=== PATIENT | male | born 1985 | race Caucasian/White ===

== ENCOUNTER 2019-09-23 15:44 | Emergency (ER) | payer OTHER, SELFPAY ==
[2019-09-23 16:21] VITALS: BP 153/102; PULSE 120; RESP 16; TEMP 36.8; O2SAT 100
--- NOTE | 2019-09-23 16:23 | ED.GENADULT ---
HPI - General Adult General Chief complaint: Upper Respiratory Infection Stated complaint: sore throat/garcia/body aches Time Seen by Provider: 09/23/19 16:29 Source: patient Mode of arrival: ambulatory Limitations: no limitations History of Present Illness HPI narrative: 34-year-old male patient presents to the [facility] with complaints of cold symptoms that started about noon today. Patient states he has body aches, chills, fever, sore throat and congestion. Patient states that he did get a flu shot this year. Patient states that he does work in the [employer] and has been exposed to a lot of flu recently. Patient states he is coming in today for get a strep and flu swab. Related Data Home Medications Medication Instructions Recorded Confirmed atorvastatin 10 mg tablet 10 mg PO DAILY 07/13/19 09/23/19 Allergies Allergy/AdvReac Type Severity Reaction Status Date / Time No Known Allergies Allergy Verified 09/23/19 16:20 Review of Systems Review of Systems: Narrative: CONSTITUTIONAL: Positive subjective fever, chills, body aches and sweats. EYES: Denies visual changes, redness, or discharge. ENT: Denies rhinorrhea, positive congestion, sore throat, denies otalgia. CARDIOVASCULAR: Denies chest pain, palpitations, or edema. RESPIRATORY: Positive cough, denies dyspnea. GASTROINTESTINAL: Denies abdominal pain, nausea, vomiting, or diarrhea. GENITOURINARY: Denies dysuria or hematuria. SKIN: Denies rash or itching. MUSCULOSKELETAL: Denies back pain, joint pain, or myalgia. NEUROLOGIC: Positive headache, denies numbness, or weakness. PSYCHIATRIC: Denies anxiety or depression. [facility] Past Medical History Medical History Skin graft disorder (~1986) Family History Family History Grandparent Diabetes mellitus Hypertension Acute myocardial infarction Family history of coronary artery disease Father Hypertension Family history of elevated blood lipids Mother Hypertension Family history of elevated blood lipids Social History Social History Smoking status: Never smoker Alcohol intake: current Comments At the time of my signature I agree with nursing past medical history, surgical, social, and family history. There is no relevant family history pertinent to the presenting complaint. Exam Narrative: Exam Narrative: GENERAL: Well-appearing, well-nourished, and in no acute distress. HEAD: Normocephalic, atraumatic. No tenderness noted to frontal and maxillary sinuses on palpation. EYES: PERRLA and EOMI. ENT: Nares with erythema and edema noted bilaterally, patent, no rhinorrhea or epistaxis. Mucous membranes moist. Posterior pharynx with 2+ tonsil enlargement some erythema but no exudates or lesions present. Bilateral TMs are clear no erythema or foreign bodies in the canal. NECK: Supple. No lymphadenopathy CHEST: Clear to auscultation. No respiratory distress. HEART: Regular rate and rhythm. No murmur heard. Normal peripheral pulses. ABDOMEN: Soft, nontender, nondistended, normal active bowel sounds. EXTREMITIES: Normal range of motion. No edema. SKIN: Warm, dry, no rash. NEURO: No focal deficits. Alert and oriented x3. Course Reevaluation(s) Reevaluation #1: Discussed with patient that his strep today is negative however we will send this off to the lab just to make sure it is truly negative and if it does come back positive he will receive a phone call placing him on antibiotics. Discussed with patient that his bedside influenza was also negative however since his symptoms just started a few hours ago I think that this just has not been able to turn positive yet and due to his symptoms this is most likely influenza so I am to go ahead and start him on antivirals today. Patient is in agreement with this plan of care at this time denies any ot
== END 2019-09-23 16:48 | disposition home or self-care (01) ==
PROVIDERS: Emergency Provider Nurse Practitioner Family
DX: J06.9 Acute upper respiratory infection, unspecified (principal); E78.00 Pure hypercholesterolemia, unspecified; I10 Essential (primary) hypertension
CPT/HCPCS: 87081; 87804; 87880; 99213; G0463

== ENCOUNTER 2024-04-27 11:06 | Outpatient (CLI) | payer OTHER, SELFPAY ==
--- NOTE | ~2024-04-27 | US_ITS ---
EXAMINATION: US right upper quadrant DATE: 04/27/2024 11:28 INDICATION: Right upper quadrant abdominal pain TECHNIQUE: Multiple grayscale and Doppler ultrasound images of the abdomen were obtained. COMPARISON: None FINDINGS: Visualized abdominal aorta is normal in caliber measuring 2.7 similar in diameter proximally tapering to 2.2 cm distally. The visualized proximal inferior vena cava is normal. Visualized portion of the body the pancreas is unremarkable. The majority the pancreas is obscured. Liver has normal echogenici ty and contour, with a smooth surface. No liver lesion identified. No intrahepatic biliary duct dilat ion suspected. Portal venous flow was seen in the hepatopetal, normal direction and has normal Dopple r waveform. The gallbladder is normal in appearance. There is no cholelithiasis. The common bile anh t measures 4 mm, which is normal. Sonographic Almanzar sign was reported as negative by the hooker up . Right kidney measures 11.8 cm in length with normal contour and echogenicity and no hydronephrosis. IMPRESSION: 1. Normal right upper quadrant ultrasound. Reviewed, dictated and finalized at location B.
== END 2024-04-27 11:07 | disposition home or self-care (01) ==
LOC: MICIMG 11:07
PROVIDERS: PCP Family Medicine; Visit Provider Family Medicine
DX: R10.11 Right upper quadrant pain (principal)
CPT/HCPCS: 76705